=== PATIENT | male | born 2005 | race Caucasian/White ===

== ENCOUNTER 2025-05-19 12:21 | Emergency (ER) | payer SELFPAY ==
[2025-05-19 12:24] VITALS: BP 116/74
--- NOTE | 2025-05-19 14:08 | ED.GENMED ---
History of Present Illness
General
Chief Complaint: Skin Problem
Source: patient
Exam Limitations: none
Time Seen by Provider: 05/19/25 13:54
Nursing documentation reviewed up to this point in time: agreed with
History of Present Illness
History of Present Illness:
Patient is a 19-year-old male who presents to the emergency department for evaluation of splinter stuck in left forearm. Patient works for a [employer] and states that earlier today he he mishandled a piece of wood any splinter became stuck in
his left forearm. He was seen in urgent care where they attempted removal however unfortunately the splinter broke and a larger piece got stuck deeper in his arm.
Patient was sent over by urgent care for additional attempt at removal
Patient reports intermittent stabbing pains that shoot up his left arm with movement of his hand. He feels that the splinter may be irritating a nerve.
Patient states that his most recent tetanus shot was definitely within the past 5 years.
Review of Systems
Review of Systems
Allergies reviewed?: Yes
All Other Systems: ROS reviewed and negative except as documented in HPI and ROS
Phy Exam
Physical Exam
Physical Exam:
Vitals: Patient's vital signs are stable. Afebrile
General: Patient is well appearing, no acute distress
Skin: Pinpoint opening to skin on left ventral forearm with surrounding induration . No red streaking or active bleeding.
Head: Normocephalic, atraumatic
Throat: Protecting airway
Neck: Normal ROM, no cervical spine tenderness
Cardiac: Regular rate
Pulm: No apparent respiratory distress
Abdomen: Nondistended
Extremities: Full range of motion in left upper extremity and hand. 2+ palpable radial pulse and capillary refill WNL.
Neuro: Grossly intact
Psychiatric: Normal affect.
Course
Vital Signs
Initial and Last Documented VS:
Initial Vital Signs
Temp Pulse Resp BP Pulse Ox
97.9 F 79 18 116/74 96
05/19/25 12:24 05/19/25 12:24 05/19/25 12:24 05/19/25 12:24 05/19/25 12:24
Last Documented Vital Signs
Temp Pulse Resp BP Pulse Ox
97.9 F 79 18 116/74 96
05/19/25 12:24 05/19/25 12:24 05/19/25 12:24 05/19/25 12:24 05/19/25 14:08
Procedures
Foreign Body Removal-Skin
Wound explored and foreign body removed?: Yes
Anesthesia: local and 1%lidocaine w/epinephrine
Foreign body removed using: irrigation, forceps and incision
Foreign body removed: completely
MDM/Problems Addressed
Differential Diagnosis Includes:
Not limited to: Foreign body, cellulitis, etc.
MDM/Problems Addressed:
19-year-old male presenting with retained splinter in left forearm. This occurred earlier today while at work and it was partially removed at urgent care however sent to emergency department for complete removal and further evaluation. Patient
up-to-date on his tetanus vaccine. Vitals and physical exam as above.
Verbal consent obtained by patient. Area was anesthetized with 1% lidocaine w/ epi. A small incision was made near skin opening. Unable to locate splinter initially and did have to lengthen incision minimally. Splinter was removed using forceps.
Wound irrigated thoroughly w/ normal saline. I believe splinter was removed in entirety, however unable to be definitively sure of this. One suture was placed too closely approximate skin edges. Patient tolerated procedure well and has normal distal
vascular exam. Will cover patient with antibiotics � urgent care already prescribed a course of Augmentin and advised patient to continue.
Given pain patient was experiencing earlier � a possible nerve irritation may have occurred however symptoms seem resolved at this time. Ultimately feel stable for discharge home with Workmen�s Comp. physician follow-up. Advised close monitoring for
signs of infection and suture removal in seven days. Advised to follow up w/ ortho if intermittent pain persists. Return precautions discussed.
Chronic conditions affecting care:
N/A
Acute Exacerbation and/or Progression of Chronic Illness:
N/A
*Pulse Oximetry
SaO2: 96
Oxygen Mode of Delivery: Room air
Patient hypoxic: no
*EKG
Interpreted by ED Provider?: NA
*Media Services Specialist Interpretation
Rate: Media Services Specialist- N/A
*Critical Care Note
Total Time (30-74mins, 75-104mins- exclusive of procedures): Not Applicable
ED Attending Note
-
Portions of this chart may have been created with voice recognition software.� Occasional wrong word or��sound alike� substitutions may have occurred due to the inherent limitations of voice recognition software.
Discharge Plan
Departure
Patient Disposition: Home (Routine Discharge)
Date of Disposition: 05/19/25
Time of Disposition: 14:46
Patient with high blood pressure during this ER visit?: No
Condition: Good
Discharge Problem:
Splinter of left upper extremity
Instructions: Foreign Body in Skin ED, Stitches - ED discharge instructions
Referrals:
NONE,* [Family Provider, Internal Medicine]
Stand Alone Forms: Return to Work
Activity Restrictions/Additional Instructions:
RETURN TO THE EMERGENCY DEPARTMENT WITH ANY NUMBNESS/TINGLING OR INTRACTABLE PAIN OF LEFT UPPER EXTREMITY OR ANY SIGNS OF INFECTION INCLUDING FEVER, CHILLS, PURULENT DRAINAGE FROM WOUND, SIGNIFICANT REDNESS OR RED STREAKING AWAY FROM WOUND, OR ANY
OTHER CONCERNS
- As discussed�the splinter was moved in your left forearm today. 1 suture was placed to close the wound. This will need to be removed in about 1 week. This can be done at the primary care, urgent care, or emergency department.
- It is important to keep wound clean and dry. Wash gently with soap and water and keep covered until suture removed.
- You can take antibiotics as prescribed by urgent care twice a day for the next 5 days.
- Follow-up with your Workmen's Comp. physician for further evaluation/management to ensure that your symptoms are improving.
Monitor your symptoms closely and return to the emergency department with any acute worsening/new symptoms or any other concerns
Interventions
Interventions:
*Risk Screen - Suicide Last Done: 05/19/25 12:24
*General Assessment Last Done: 05/19/25 15:31
*Neglect/Abuse Screening Last Done: 05/19/25 12:24
*ED- Fall Risk Assessment Last Done: 05/19/25 15:31
*ED COVID-19 Vaccine History Last Done: 05/19/25 15:31
*Nursing Disposition Last Done: 05/19/25 15:31
ED-Skin Assessment Last Done: 05/19/25 13:27
Discharge Date and Time
Discharge Date/Time: 05/19/25 15:32
Print Language: MONGOLIAN
== END 2025-05-19 15:32 | disposition home or self-care (01) ==
LOC: EMR 12:21
PROVIDERS: EMERGENCY PHYSICIAN Emergency Medicine
DX: S50.852A Superficial foreign body of left forearm, initial encounter (principal); W45.8XXA Other foreign body or object entering through skin, initial encounter
CPT/HCPCS: 99282; 10120